=== PATIENT | female | born 2000 | race Caucasian/White ===

== ENCOUNTER 2018-05-10 12:18 | Emergency (ER) | payer BC, SELFPAY ==
[2018-05-10 12:21] VITALS: BP 128/88; PULSE 108; RESP 12; TEMP 36.4; O2SAT 99
[2018-05-10 12:26] VITALS: BP 128/88; PULSE 108; RESP 12; TEMP 36.4; O2SAT 99
--- NOTE | 2018-05-10 14:48 | ED_ITS ---
HPI - Skin/Abscess/Foreign Bdy <Britta Ledesma PA-C - Last Filed: 05/10/18 20:10> General Chief complaint: Skin/Abscess/Foreign Body Stated complaint: BUMP ON TAIL BONE PAIN NOT ABLE TO SEAT Time Seen by Provider: 05/10/18 13:26 Source: patient and family Mode of arrival: ambulatory Limitations: no limitations History of Present Illness HPI narrative: This healthy 17-year-old female comes in due to worsening left gluteal pain. She states that she actually had pain in this area a couple of months ago and was told likely due to constipation. Pain did improve on that point, however Wednesday she started to have similar pain again that gradually worsened over the weekend. It is in the left upper gluteal area lateral to the cleft. She states that she saw her mom's PCP yesterday who was concerned about abscess but unable to reach surgeon. Pain has continued to worsen overnight, she is unable to sit or lie down comfortably. She has not had fever. She has not had any nausea or vomiting. She has not had drainage from the wound. She has not been constipated, but did take a laxative in case that was the problem and did not help ( has been having regular bowel movements ). She states ibuprofen has helped slightly with pain. Related Data Previous Rx's Medication Instructions Recorded amoxicillin-pot clavulanate 1 tab PO Q12H #20 tab 05/10/18 [Augmentin] hydrocodone-acetaminophen [[place]] 1 tab PO Q4HR #12 tab 05/10/18 meloxicam 15 mg PO DAILY #14 tab 05/10/18 Allergies Allergy/AdvReac Type Severity Reaction Status Date / Time Sulfa (Sulfonamide Allergy Verified 05/10/18 17:22 Antibiotics) Review of Systems <Britta Ledesma PA-C - Last Filed: 05/10/18 20:10> Review of Systems ROS Unobtainable: All systems reviewed & are unremarkable except as noted in HPI and below PFSH <Britta Ledesma PA-C - Last Filed: 05/10/18 20:10> Medical History Healthy female (Chronic) Surgical History Status post adenoidectomy (Resolved) Family History Other Family history non-contributory Social History Smoking Status: Never smoker Family History Other Family history non-contributory Social History Smoking Status: Never smoker Exam <Britta Ledesma PA-C - Last Filed: 05/10/18 20:10> Narrative Exam Narrative: GENERAL APPEARANCE: Patient standing up, appears uncomfortable, but in NAD LUNGS: Clear to auscultation bilaterally. HEART: Rate and rhythm regular without murmur, normal S1 and S2, no S3 or S4. ABDOMEN: Soft, nontender, nondistended, +bowel sounds x4 quadrants DERM: at the proximal border of the left gluteal cleft there is some non circumscribed edema but no circumscribed mass or clear fluctuance. She is exquisitely tender lateral to this. There is no visible pore or d/c Initial Vital Signs Initial Vital Signs: Vital Signs Temperature 97.6 F 05/10/18 12:21 Pulse Rate 108 H 05/10/18 12:21 Respiratory Rate 12 05/10/18 12:21 Blood Pressure 128/88 05/10/18 12:21 Pulse Oximetry 99 05/10/18 12:21 <Kip Burgess DO - Last Filed: 05/17/18 07:40> Initial Vital Signs Initial Vital Signs: Vital Signs Temperature 97.6 F 05/10/18 12:21 Pulse Rate 108 H 05/10/18 12:21 Respiratory Rate 12 05/10/18 12:21 Blood Pressure 128/88 05/10/18 12:21 Pulse Oximetry 99 05/10/18 12:21 Course <Britta eLdesma PA-C - Last Filed: 05/10/18 20:10> Additional Information: Dr. Jiang on-call for surgery has kindly come to ED to evaluate patient today and believes this is a phlegmon, not abscessed at this point. Advised antibiotics and pain management, and he will see her in the office next week. Appointment is scheduled. Orders Ordered: Discontinued Medications Ketorolac Tromethamine (Toradol) 30 mg IV NOW ONE Stop: 05/10/18 15:03 Last Admin: 05/10/18 15:22 Dose: 30 mg Vital Signs - 8 hr 05/10/18 12:21 05/10/18 12:26 05/10/18 17:10 Temperature 97.6 F 97.6 F Pulse Rate 108 H 108 H 98 H Respiratory Rate 12 12 Blood Pressure 128/88 128/88 Blood Pressure [Left Arm] 112/48 L Pulse Oximetry 99 99 98 05/10/18 17:24 Temperature 98.9 F Pulse Rate 105 H Respiratory Rate 19 Blood Pressure 112/48 L Blood Pressure [Left Arm] Pulse Oximetry 100 <Kip Burgess DO - Last Filed: 05/17/18 07:40> Orders Ordered: Discontinued Medications Ketorolac Tromethamine (Toradol) 30 mg IV NOW ONE Stop: 05/10/18 15:03 Last Admin: 05/10/18 15:22 Dose: 30 mg Vital Signs - 8 hr 05/10/18 12:21 05/10/18 12:26 05/10/18 17:10 Temperature 97.6 F 97.6 F Pulse Rate 108 H 108 H 98 H Respiratory Rate 12 12 Blood Pressure 128/88 128/88 Blood Pressure [Left Arm] 112/48 L Pulse Oximetry 99 99 98 05/10/18 17:24 Temperature 98.9 F Pulse Rate 105 H Respiratory Rate 19 Blood Pressure 112/48 L Blood Pressure [Left Arm] Pulse Oximetry 100 MDM - Skin/Abscess/Foreign Bdy <Britta Ledesma PA-C - Last Filed: 05/10/18 20:10> Lab Data Result diagrams: 05/10/18 15:20 05/10/18 16:00 Lab Results 05/10/18 05/10/18 05/10/18 Range/Units 15:20 15:20 16:00 WBC 11.6 H (4.5-11.0) X10^3/uL RBC 4.41 (4.0-5.2) X10^6/uL Hgb 13.8 (12.0-16.0) g/dL Hct 40.3 (36-46) % MCV 91.3 (80-100) fL MCH 31.2 (26-34) PG MCHC 34.2 (30-36) % RDW 11.9 (11.6-14.8) % Plt Count 323 (150-400) X10^3/uL Neut % (Auto) 73.9 (50-75) % Lymph % (Auto) 19.1 L (25-40) % Andrew % (Auto) 6.1 (3-14) % Eos % (Auto) 0.3 L (2-4) % Baso % (Auto) 0.6 (0-2) % Neut # (Auto) 8600 H (6482-8204) /uL Lymph # (Auto) 2200 (7374-1477) /uL [place] # (Auto) 700 (0-900) /uL Eos # (Auto) 0 (0-450) /uL Baso # (Auto) 100 (0-100) /uL Sodium 140 (137-145) mmol/L Potassium 4.0 (3.4-5.1) mmol/L Chloride 103 (98-107) mmol/L Carbon Dioxide 26 (22-32) mmol/L BUN 13 (7-17) mg/dL Creatinine 0.60 (0.52-1.04) mg/dL Estimated GFR > 60.0 (>60) mL/min BUN/Creatinine Ratio 21.7 (6-22) Glucose 95 (70-100) mg/dL Calcium 9.6 (8.4-10.2) mg/dL Serum , Qual Negative (Negative) <Kip Burgess, DO - Last Filed: 05/17/18 07:40> Lab Data Lab Results 05/10/18 05/10/18 05/10/18 Range/Units 15:20 15:20 16:00 WBC 11.6 H (4.5-11.0) X10^3/uL RBC 4.41 (4.0-5.2) X10^6/uL Hgb 13.8 (12.0-16.0) g/dL Hct 40.3 (36-46) % MCV 91.3 (80-100) fL MCH 31.2 (26-34) PG MCHC 34.2 (30-36) % RDW 11.9 (11.6-14.8) % Plt Count 323 (150-400) X10^3/uL Neut % (Auto) 73.9 (50-75) % Lymph % (Auto) 19.1 L (25-40) % Andrew % (Auto) 6.1 (3-14) % Eos % (Auto) 0.3 L (2-4) % Baso % (Auto) 0.6 (0-2) % Neut # (Auto) 8600 H (3527-7955) /uL Lymph # (Auto) 2200 (7036-0171) /uL Andrew # (Auto) 700 (0-900) /uL Eos # (Auto) 0 (0-450) /uL Baso # (Auto) 100 (0-100) /uL Sodium 140 (137-145) mmol/L Potassium 4.0 (3.4-5.1) mmol/L Chloride 103 (98-107) mmol/L Carbon Dioxide 26 (22-32) mmol/L BUN 13 (7-17) mg/dL Creatinine 0.60 (0.52-1.04) mg/dL Estimated GFR > 60.0 (>60) mL/min BUN/Creatinine Ratio 21.7 (6-22) Glucose 95 (70-100) mg/dL Calcium 9.6 (8.4-10.2) mg/dL Serum , Qual Negative (Negative) Discharge Plan Departure Patient Disposition: Home Clinical Impression: Phlegmon Discharge Date/Time: 05/10/18 17:25 Interventions: ED Discharge Assessment Last Done: 05/10/18 17:24 Instructions: Pilonidal Cyst Activity Restrictions/Additional Instructions: Dr. Jiang believes that you have inflammation in the area where you are having pain and this can be related to infection, but he does not think you have an abscess there at this point. We are going to start you on an antibiotic for th is called Augmentin. Take it twice daily. Take the long-acting anti- inflammatory pain medicine meloxicam once daily ( do not take with additional NSAIDs ). I have also given you a prescription for hydrocodone /acetaminophen to take in addition for pain if needed ( do not take this and DrRaúl as it may make you sleepy). Return here or call Dr. Jiang's office right away if you have acutely worsening symptoms i.e. worsening pain or swelling, or new symptoms such as fever or drainage. Otherwise, please see him at his office next Wednesday at 9:45 a.m. as you discussed. For primary care providers in [facility] who may be able to see you quickly, you may wish to call the [facility] clinic to see either Dr. Diana or Ashleigh, the nurse practitioner. Sandra Orona, nurse practitioner who just joined [facility] has been in practice here in [facility] for a long time and is wonderful as well. Prescriptions: New hydrocodone-acetaminophen [Toluca] 5-325 mg tablet 1 tab PO Q4HR Qty: 12 RF: 0 meloxicam 15 mg tablet 15 mg PO DAILY Qty: 14 RF: 0 amoxicillin-pot clavulanate [Augmentin] 875-125 mg tablet 1 tab PO Q12H Qty: 20 RF: 0 Referrals: Javier Jiang MD [Physician] - <Kip Burgess DO - Last Filed: 05/17/18 07:40> Cosign ED Attending Coscindiature Attestation: I was immediately available in the department for consultation. Documentation has been reviewed. I agree with assessment and plan.
[2018-05-10] MEDS: KETOROLAC 60 MG/2 ML VIAL 30 MG IV (15:22)
[2018-05-10 15:25] LABS: Add Manual Diff / Slide Review NO; Basophils Absolute Auto 100 /uL (0-100); Basophils Percent Auto 0.6 % (0-2); Eosinophils Absolute Auto 0 /uL (0-450); Eosinophils Percent Auto 0.3 % (2-4); Hematocrit 40.3 % (36-46); Hemoglobin 13.8 g/dL (12.0-16.0); Lymphocytes Absolute Auto 2200 /uL (1100-4500); Lymphocytes Percent Auto 19.1 % (25-40); Mean Corpuscular HGB Conc 34.2 % (30-36); Mean Corpuscular Hemoglobin 31.2 PG (26-34); Mean Corpuscular Volume 91.3 fL (80-100); Monocytes Absolute Auto 700 /uL (0-900); Monocytes Percent Auto 6.1 % (3-14); Neutrophils Absolute Auto 8600 /uL (1500-7000); Neutrophils Percent Auto 73.9 % (50-75); Platelet Count 323 X10^3/uL (150-400); Red Blood Cell Count 4.41 X10^6/uL (4.0-5.2); Red Cell Distribution Width 11.9 % (11.6-14.8); White Blood Cell Count 11.6 X10^3/uL (4.5-11.0)
[2018-05-10 15:53] LABS: Pregnancy Test Serum,Qual Negative (Negative)
[2018-05-10 16:17] LABS: BUN Creatinine Ratio 21.7 (6-22); Blood Urea Nitrogen 13 mg/dL (7-17); Calcium 9.6 mg/dL (8.4-10.2); Carbon Dioxide 26 mmol/L (22-32); Chloride 103 mmol/L (98-107); Estimated Glomerular Filt Rate > 60.0 mL/min (>60); Glucose 95 mg/dL (70-100); HEMOLYSIS < 15 (0-50); Sodium 140 mmol/L (137-145)
--- NOTE | 2018-05-10 17:03 | PM.CN ---
History of Present Illness Date Patient Seen: 05/10/18 Time Patient Seen: 17:03 Chief complaint: BUMP ON TAIL BONE PAIN NOT ABLE TO SEAT Reason for consult: Painful mass at the coccyx Requesting provider: Britta Ledesma Narrative: 17-year-old otherwise healthy female who presented to her family physician approximately 4 days ago now with nondescript pain and discomfort at the sacrococcygeal region. She had had 1 similar episode sometime last year and was prescribed laxatives. Ironically, the patient states that her symptoms abated at that time. She has had no issues until 4 days ago as above. At that point she began to experience a fullness in feeling of a palpable lump in the sacrococcygeal region but without any fever, chills, nausea, vomiting, or drainage. Pain is mostly present when she is in a upright seated position but abates when she is in a decubitus supine position. She has had no recent troubles with bowel function. No diarrhea or constipation. No melena, hematochezia, bright red blood per rectum. No abdominal pain. No nausea or vomiting. No dysuria or hematuria. No vaginal discharge. She presents to the emergency department this afternoon because of progressive discomfort. 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[employer] Home Medications Medication Instructions Recorded Confirmed Type amoxicillin-pot clavulanate 1 tab PO Q12H #20 tab 05/10/18 Rx [Augmentin] hydrocodone-acetaminophen [[place]] 1 tab PO Q4HR #12 tab 05/10/18 Rx meloxicam 15 mg PO DAILY #14 tab 05/10/18 Rx Review of Systems Review of Systems All systems reviewed & are unremarkable except as noted in HPI and below Exam Vital Signs (past 8 hours): - 05/10/18 12:21 05/10/18 12:26 Temperature 97.6 F 97.6 F Pulse Rate 108 H 108 H Respiratory Rate 12 12 Blood Pressure 128/88 128/88 Pulse Oximetry 99 99 Oxygen Delivery Method Room Air Narrative Exam Narrative: Patient is seen in the emergency department with the assistance of the nurse applications manager. Patient's mother is at the bedside for the entire visit as well Patient is actually lying comfortably in the right lateral decubitus position upon my visit. She is smiling and laughing with her family. She is in no acute distress. She has no evidence of acute illness or discomfort. She is able to ambulate and reposition herself without any difficulty. No fevers here in the emergency department. Otherwise hemodynamically stable Focused examination of the sacrococcygeal region shows a small 3 cm indurated area consistent with phlegmon. There is no fluctuance. Actually there is no actual skin lesions such as sebaceous cyst or obvious pilonidal cyst. No tracts or granulation tissue. She is overall not even particularly hirsute. The adelaida cleft is not particularly deep as well. She is focally tender to palpation over the phlegmon however. The lesion does not encroach upon the perianal region. No cellulitis or erythema. Formal digital rectal examination is deferred Objective Labs Result Diagrams: 05/10/18 15:20 05/10/18 16:00 Labs: Laboratory Results - last 24 hr 05/10/18 05/10/18 05/10/18 15:20 15:20 16:00 WBC 11.6 H RBC 4.41 Hgb 13.8 Hct 40.3 MCV 91.3 MCH 31.2 MCHC 34.2 RDW 11.9 Plt Count 323 Neut % (Auto) 73.9 Lymph % (Auto) 19.1 L [place] % (Auto) 6.1 Eos % (Auto) 0.3 L Baso % (Auto) 0.6 Neut # (Auto) 8600 H Lymph # (Auto) 2200 [place] # (Auto) 700 Eos # (Auto) 0 Baso # (Auto) 100 Sodium 140 Potassium 4.0 Chloride 103 Carbon Dioxide 26 BUN 13 Creatinine 0.60 Estimated GFR > 60.0 BUN/Creatinine Ratio 21.7 Glucose 95 Calcium 9.6 Serum , Qual Negative Assessment & Plan Plan: Assessment/Plan Narrative: 17-year-old female with phlegmon but no discrete abscess at the sacrococcygeal area. Although the lesion would be consistent with an inflamed pilonidal cyst I do not currently appreciate any sequela of a cyst. Nevertheless the patient has been symptomatic for 4 days now with progression of her pain. I would therefore recommend that she be treated with antibiotics. I believe she can be managed as an outpatient however. I see no indications for acute surgical intervention such as incision and drainage. I will see her in the office next week following the course of the antibiotics. She understands after my discussion that there are several potential scenarios that could develop. She may have progression of her symptoms despite the above interventions which would necessitate earlier return with subsequent incision and drainage. She may respond appropriately but then recur at a later date. She could also respond completely without recurrence of her symptoms and no evidence of a lesion that would require further excision although she did have evidence of a pilonidal cyst I would recommend removal once the acute inflammation has subsided. I will plan to see her next week as above, but I clearly instructed her and her family to return sooner if she has progressive pain, fever, chills, significant swelling, or drainage from the area. All questions were answered to her satisfaction, and she voiced understanding. Case discussed with the attending emergency room physician.
[2018-05-10 17:10] VITALS: BP 112/48; PULSE 98; O2SAT 98
--- NOTE | 2018-05-10 17:12 | P.CONS_ITS ---
History of Present Illness Date Patient Seen: 05/10/18 Time Patient Seen: 17:03 Chief complaint: BUMP ON TAIL BONE PAIN NOT ABLE TO SEAT Reason for consult: Painful mass at the coccyx Requesting provider: Britta Ledesma Narrative: 17-year-old otherwise healthy female who presented to her family physician approximately 4 days ago now with nondescript pain and discomfort at the sacrococcygeal region. She had had 1 similar episode sometime last year and was prescribed laxatives. Ironically, the patient states that her symptoms abated at that time. She has had no issues until 4 days ago as above. At that point she began to experience a fullness in feeling of a palpable lump in the sacrococcygeal region but without any fever, chills, nausea, vomiting, or drainage. Pain is mostly present when she is in a upright seated position but abates when she is in a decubitus supine position. She has had no recent troubles with bowel function. No diarrhea or constipation. No melena, hematochezia, bright red blood per rectum. No abdominal pain. No nausea or vomiting. No dysuria or hematuria. No vaginal discharge. She presents to the emergency department this afternoon because of progressive discomfort. 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 Medications Medication Instructions Recorded Confirmed Type amoxicillin-pot clavulanate 1 tab PO Q12H #20 tab 05/10/18 Rx [Augmentin] hydrocodone-acetaminophen [[place]] 1 tab PO Q4HR #12 tab 05/10/18 Rx meloxicam 15 mg PO DAILY #14 tab 05/10/18 Rx Review of Systems Review of Systems All systems reviewed & are unremarkable except as noted in HPI and below Exam Vital Signs (past 8 hours): - 05/10/18 12:21 05/10/18 12:26 Temperature 97.6 F 97.6 F Pulse Rate 108 H 108 H Respiratory Rate 12 12 Blood Pressure 128/88 128/88 Pulse Oximetry 99 99 Oxygen Delivery Method Room Air Narrative Exam Narrative: Patient is seen in the emergency department with the assistance of the nurse buncher machine. Patient's mother is at the bedside for the entire visit as well Patient is actually lying comfortably in the right lateral decubitus position upon my visit. She is smiling and laughing with her family. She is in no acute distress. She has no evidence of acute illness or discomfort. She is able to ambulate and reposition herself without any difficulty. No fevers here in the emergency department. Otherwise hemodynamically stable Focused examination of the sacrococcygeal region shows a small 3 cm indurated area consistent with phlegmon. There is no fluctuance. Actually there is no actual skin lesions such as sebaceous cyst or obvious pilonidal cyst. No tracts or granulation tissue. She is overall not even particularly hirsute. The adelaida cleft is not particularly deep as well. She is focally tender to palpation over the phlegmon however. The lesion does not encroach upon the perianal region. No cellulitis or erythema. Formal digital rectal examination is deferred Objective Labs Result Diagrams: 05/10/18 15:20 05/10/18 16:00 Labs: Laboratory Results - last 24 hr 05/10/18 05/10/18 05/10/18 15:20 15:20 16:00 WBC 11.6 H RBC 4.41 Hgb 13.8 Hct 40.3 MCV 91.3 MCH 31.2 MCHC 34.2 RDW 11.9 Plt Count 323 Neut % (Auto) 73.9 Lymph % (Auto) 19.1 L [place] % (Auto) 6.1 Eos % (Auto) 0.3 L Baso % (Auto) 0.6 Neut # (Auto) 8600 H Lymph # (Auto) 2200 [place] # (Auto) 700 Eos # (Auto) 0 Baso # (Auto) 100 Sodium 140 Potassium 4.0 Chloride 103 Carbon Dioxide 26 BUN 13 Creatinine 0.60 Estimated GFR > 60.0 BUN/Creatinine Ratio 21.7 Glucose 95 Calcium 9.6 Serum , Qual Negative Assessment & Plan Plan: Assessment/Plan Narrative: 17-year-old female with phlegmon but no discrete abscess at the sacrococcygeal area. Although the lesion would be consistent with an inflamed pilonidal cyst I do not currently appreciate any sequela of a cyst. Nevertheless the patient has been symptomatic for 4 days now with progression of her pain. I would therefore recommend that she be treated with antibiotics. I believe she can be managed as an outpatient however. I see no indications for acute surgical intervention such as incision and drainage. I will see her in the office next week following the course of the antibiotics. She understands after my discussion that there are several potential scenarios that could develop. She may have progression of her symptoms despite the above interventions which would necessitate earlier return with subsequent incision and drainage. She may respond appropriately but then recur at a later date. She could also respond completely without recurrence of her symptoms and no evidence of a lesion that would require further excision although she did have evidence of a pilonidal cyst I would recommend removal once the acute inflammation has subsided. I will plan to see her next week as above, but I clearly instructed her and her family to return sooner if she has progressive pain, fever, chills, significant swelling, or drainage from the area. All questions were answered to her satisfaction, and she voiced understanding. Case discussed with the attending emergency room physician.
[2018-05-10 17:24] VITALS: BP 112/48; PULSE 105; RESP 19; TEMP 37.2; O2SAT 100
--- NOTE | 2018-05-10 17:24 | PC.NURSE ---
Patient unable to sit/lay down without excruciating pain. C/o rectal pain.
== END 2018-05-10 17:25 | disposition home or self-care (01) ==
PROVIDERS: Emergency Provider Internal Medicine
DX: L02.91 Cutaneous abscess, unspecified (principal)
CPT/HCPCS: 36591; 80048; 84703; 85025; 96374; 99282; 99284; J1885

== ENCOUNTER 2018-05-24 12:46 | Day surgery (SDC) | payer BC, SELFPAY ==
[2018-05-19 12:21] VITALS: BMI 27.4
[2018-05-24] VITALS (10 sets, daily range): BP systolic 101–120; BP diastolic 47–79; PULSE 79–106; RESP 10–16; TEMP 36.4–36.7; O2SAT 97–100; BMI 27.4
--- NOTE | 2018-05-24 | PATH_ITS ---
[facility] Accession Number: [id number] . 01 Material submitted: . PILONIDAL CYST . 02 Diagnosis: Pilonidal Cyst, Excision: Histologic features of pilonidal cyst with associated abscess. MRV/05/26/2018 . 02 Electronically signed: . Lesli Rojas MD, Pathologist NPI- [id number] . 01 Gross description: . Received in formalin, labeled pilonidal cyst, is an unoriented ellipse of howell smooth and shiny skin with underlying tissue (4.8 x 3.2 x 2.4 cm) containing a linear firm pucker along the long axis. The underlying tissue is fatty and densely fibrous containing a cystic cavity. The cavity (3.5 x 0.7 x 0.3 cm) contains red-orange tacky liquid. The resection margin is inked black. [employer] serial sections are submitted in cassettes A1 and A2. ([id number]) /[facility] . 02 Pathologist provided ICD-10: L05.01 . 02 CPT . 963695 Performed at: 01 [facility] [address] [facility], [place], [place] [id number] MD Nilesh Loredo MD Phone: [phone] Performed at: 02 [facility] [address] [place], [place] [id number] MD Shavon Li MD Phone: [phone]
[2018-05-24] MEDS: LACTATED RINGERS 1,000 ML 42 ML IV ×2 (13:15→15:56)
[2018-05-24] MEDS: CEFAZOLIN 2 GM/100 ML FROZ.PIGGY IV (13:55)
--- NOTE | 2018-05-24 14:10 | PM.PREOP ---
Pre-operative Note Interval Note History & Physical reviewed/Exam performed by Physician: Yes Changes to H&P: No H&P completed within 30 days and has changed as indicated here:: Patient seen and examined in the preoperative area today. Her history and physical examination within the last 30 days is documented, placed on the chart, and has not changed. Urine test today is negative. Proceed with excision of pilonidal cyst today as planned.
[2018-05-24] MEDS: LIDOCAINE 1% W/EPI INJ 20 ML INJ (14:52)
[2018-05-24] MEDS: BUPIVACAINE 0.5% (PF) VIAL 30 ML INJ (14:53)
[2018-05-24] MEDS: OXYCODONE/ACETAMINOPHEN 5/325 TABLET 1 TAB PO (15:22)
[2018-05-24] MEDS: fentaNYL 100 MCG/2 ML INJ 50 MCG IV ×2 (15:34→15:40)
--- NOTE | 2018-05-24 15:41 | PM.OP.1 ---
Operative Date/Time/Diagnoses Date of procedure: 05/24/18 Time of procedure: 15:41 Pre-op diagnosis: Inflamed pilonidal cyst Post-op diagnosis: same Procedure & Clinicians Procedure: Excision of simple pilonidal cyst measuring 6 x 2 cm in greatest dimension Same procedure as scheduled: Yes Indications: 18-year-old female who presented recently to the emergency department with perianal pain and fullness. Examination and evaluation were consistent with inflamed pilonidal cyst. She responded nicely to outpatient antibiotics and presents now for elective excision of the cyst. Surgeon: Javier Jiang Click Yes if Unassisted: Yes Anesthesia Type: General Operative Notes Findings: 1. Simple pilonidal cyst with the above dimensions 2. No evidence of abscess or phlegmon 3. No evidence of significant chronic inflammation Closure Type: primary Specimen(s): other (pilonidal cyst) Prosthetic devices, grafts, tissues, transplants, or devices: None Estimated Blood Loss (mL): 10 Blood products transfused: none Procedure in detail: After obtaining informed consent the patient was brought to the operating room and left supine on the [facility]. After satisfactory induction of anesthesia she was moved to prone kiran-knife position. All pressure points were padded appropriately. Buttocks were taped apart. Area was prepped and draped in usual sterile fashion. SCOAP time out was performed per standard protocol. Elliptical incision was then designed around the cyst and infiltrated with a 1: 1 mixture of 1% lidocaine with 1:100,000 epinephrine and 0.5% plain Marcaine for postoperative analgesia. Skin incision was created with 15 scalpel blade followed by the Bovie to achieve hemostasis. Dissection proceeded down through normal-appearing tissue plane to the sacral fascia. Lesion was then excised along the fascial plane and sent for permanent section. Wound was irrigated with copious amounts of sterile saline solution and noted to be hemostatic. Subcutaneous tissue was reapproximated meticulously with interrupted 2 0 Vicryl suture. Skin was reapproximated with interrupted vertical mattress 2 0 nylon suture also meticulously. Sterile dressing was applied. Patient was returned to the supine position on the [facility]. Anesthesia was reversed and she was extubated in the operating room. She was taken recovery stable condition. Complications: none Condition: stable Disposition: PACU Plan for aftercare: 1. Discharge home 2. Follow up in surgery Clinic next week
--- NOTE | 2018-05-24 15:46 | P.OP_ITS ---
Operative Date/Time/Diagnoses Date of procedure: 05/24/18 Time of procedure: 15:41 Pre-op diagnosis: Inflamed pilonidal cyst Post-op diagnosis: same Procedure & Clinicians Procedure: Excision of simple pilonidal cyst measuring 6 x 2 cm in greatest dimension Same procedure as scheduled: Yes Indications: 18-year-old female who presented recently to the emergency department with perianal pain and fullness. Examination and evaluation were consistent with inflamed pilonidal cyst. She responded nicely to outpatient antibiotics and presents now for elective excision of the cyst. Surgeon: Javier Jiang Click Yes if Unassisted: Yes Anesthesia Type: General Operative Notes Findings: 1. Simple pilonidal cyst with the above dimensions 2. No evidence of abscess or phlegmon 3. No evidence of significant chronic inflammation Closure Type: primary Specimen(s): other (pilonidal cyst) Prosthetic devices, grafts, tissues, transplants, or devices: None Estimated Blood Loss (mL): 10 Blood products transfused: none Procedure in detail: After obtaining informed consent the patient was brought to the operating room and left supine on the [facility]. After satisfactory induction of anesthesia she was moved to prone kiran-knife position. All pressure points were padded appropriately. Buttocks were taped apart. Area was prepped and draped in usual sterile fashion. SCOAP time out was performed per standard protocol. Elliptical incision was then designed around the cyst and infiltrated with a 1: 1 mixture of 1% lidocaine with 1:100,000 epinephrine and 0.5% plain Marcaine for postoperative analgesia. Skin incision was created with 15 scalpel blade followed by the Bovie to achieve hemostasis. Dissection proceeded down through normal-appearing tissue plane to the sacral fascia. Lesion was then excised along the fascial plane and sent for permanent section. Wound was irrigated with copious amounts of sterile saline solution and noted to be hemostatic. Subcutaneous tissue was reapproximated meticulously with interrupted 2 0 Vicryl suture. Skin was reapproximated with interrupted vertical mattress 2 0 nylon suture also meticulously. Sterile dressing was applied. Patient was returned to the supine position on the [facility]. Anesthesia was reversed and she was extubated in the operating room. She was taken recovery stable condition. Complications: none Condition: stable Disposition: PACU Plan for aftercare: 1. Discharge home 2. Follow up in surgery Clinic next week
--- NOTE | 2018-05-24 16:45 | SUR.PHASEII ---
Mom brought in, d/c instructions discussed, pt not ready to go. allowed to visit with mom and sister, pt dressed when she was ready and left in stable condition.
== END 2018-05-24 16:46 | disposition home or self-care (01) ==
PROVIDERS: Visit Provider Surgery
PROC: (CPT 11770; principal; 2018-05-24 14:30)
DX: L05.01 Pilonidal cyst with abscess (principal)
CPT/HCPCS: 11770; J0690; J1100; J2250; J2405; J2704; J3010

== ENCOUNTER 2018-07-21 04:15 | Emergency (ER) | payer BC, SELFPAY ==
--- NOTE | 2018-07-21 04:28 | ED.ABDPAIN ---
HPI - Abdominal Pain General Chief Complaint: Abdominal Pain Stated Complaint: ABD PAIN/NAUSEA/FREQUENT URINATION Time Seen by Provider: 07/21/18 04:26 Source: patient Mode of arrival: ambulatory Limitations: no limitations History of Present Illness HPI narrative: Patient is a 18-year-old female here for evaluation of several days if not several weeks of occasional lower abdominal cramping. She states that it happens every now and then. She also has had off and on diarrhea which she states does not seem to associated with the cramping. She states that when the pain comes on it is fairly intense and sudden onset. She states that she has urinary urgency but when she goes to the bathroom she cannot urinate as much as what she thinks she does. No vomiting. Does have urinary tract infections in the past. Currently has an IUD in place. Is sexually active. Is not having any vaginal bleeding or vaginal discharge. No recent travel. She is not concerned about sexually transmitted diseases. Has never had a sexually transmitted disease past. Related Data Previous Rx's Medication Instructions Recorded meloxicam 15 mg PO DAILY #14 tab 05/10/18 phenazopyridine [Pyridium] 100 mg PO TID PRN 2 Days #6 tab 07/21/18 Allergies Allergy/AdvReac Type Severity Reaction Status Date / Time Sulfa (Sulfonamide Allergy Hives on Verified 07/07/18 14:51 Antibiotics) face/neck Review of Systems Constitutional Denies fever(s) and Denies headache(s) ENT Ears, Nose, Mouth, and Throat: Denies headache(s) Cardiovascular Denies chest pain and Denies dyspnea Respiratory Denies dyspnea Gastrointestinal Gastrointestinal: Reports abdominal pain, Reports cramping and Reports diarrhea Genitourinary Reports urinary urgency and Denies vaginal discharge Integumentary/Breasts Denies lesions and Denies rash Neurologic Denies headache(s) Hematologic/Lymphatic Denies easy bleeding and Denies easy bruising [facility] Medical History Pilonidal cyst without abscess (Acute) Healthy female (Chronic) Social History marital status: unmarried,living together household members: significant other occupational status: employed Smoking Status: Never smoker alcohol intake: current substance use type: does not use Exam Initial Vital Signs Initial Vital Signs: Vital Signs Temperature 98.4 F 07/21/18 04:31 Pulse Rate 84 07/21/18 04:31 Respiratory Rate 14 07/21/18 04:31 Blood Pressure 131/78 07/21/18 04:31 Pulse Oximetry 100 07/21/18 04:31 Const General: cooperative, comfortable, well developed, well groomed and No acute distress Orientation: alert, awake and oriented x3 HENMT Head: normal to inspection and normocephalic Resp Effort & Inspection: normal respiratory effort GI Inspection: non-distended Palpation: soft, No firm and No tender Skin Lesions: no lesions Rashes: no rashes Psych Appearance: grossly normal and well kempt Course Vital Signs - 8 hr 07/21/18 04:31 Temperature 98.4 F Pulse Rate 84 Respiratory Rate 14 Blood Pressure 131/78 Pulse Oximetry 100 MDM - Abdominal Pain Lab Data Attestation: I reviewed the patient's lab results. Point of care testing: Point of Care Testing Test Results Negative Urine Dip Bedside Urine Glucose Negative Bedside Urine Bilirubin - Negative Bedside Urine Ketone - Negative Urine Specific [place] 1.015 Bedside Urine Occult Blood - Negative Bedside Urine pH 6.0 Bedside Urine Protein - Negative Bedside Urine Urobilinogen - Negative Bedside Urine Nitrite - Negative Bedside Urine Leukocytes - Negative Esterase [facility] Narrative Medical decision making narrative: test is negative. UA is unremarkable. no fevers. Has a benign abdominal exam. She states that she does not have any symptoms currently. She has a follow-up appointment with her new primary doctor later today.. Will give a prescription for Pyridium but she was instructed to hold on filling this until after she sees her primary provider today. Patient expressed understanding and agreement with plan. Discharge Plan Departure Patient Disposition: Home Clinical Impression: Urinary frequency Abdominal pain Qualifiers: Abdominal location: lower abdomen, unspecified Qualified Code(s): R10.30 - Lower abdominal pain, unspecified Activity Restrictions/Additional Instructions: I recommend that you keep your appointment with your new primary provider later today. Return to the emergency department for any new or worsening symptoms Prescriptions: New phenazopyridine [Pyridium] 100 mg tablet 100 mg PO TID PRN (Reason: pain) 2 Days Qty: 6 RF: 0 No Action meloxicam 15 mg tablet 15 mg PO DAILY Qty: 14 RF: 0
[2018-07-21 04:31] VITALS: BP 131/78; PULSE 84; RESP 14; TEMP 36.9; O2SAT 100; BMI 28.3
== END 2018-07-21 05:00 | disposition home or self-care (01) ==
LOC: ED 04:58
PROVIDERS: Emergency Provider Emergency Medicine
DX: R35.0 Frequency of micturition (principal); R10.30 Lower abdominal pain, unspecified
CPT/HCPCS: 81003; 81025; 99282; 99283

== ENCOUNTER → 2018-07-22 07:54 | Outpatient (CLI) | payer BC, SELFPAY ==
--- NOTE | 2018-07-22 | DI.US.S_ITS ---
PROCEDURE: US PELVIC COMPLETE INDICATIONS: PAIN TECHNIQUE: Real-time scanning was performed of the pelvic organs, with image documentation. Additional endovaginal scanning was necessary due to incomplete visualization of the adnexal and endometrial structures by transabdominal scanning. COMPARISON: None. FINDINGS: Transabdominal scanning: Limited scanning through the kidneys shows no hydronephrosis. No pathologic free abdominal or pelvic fluid. Endovaginal scanning: Uterus: Uterus is normal in size at 3.8 x 5.5 x 8.3 cm, anteverted. The endometrium measures 2.9 mm in combined thickness. A centrally positioned IUD is noted. Ovaries: The ovaries bilaterally appear normal measuring up to 1.6 x 1.3 x 3.2 cm on the right and 1.9 x 2.8 x 2.7 cm on the left containing a 1.6 x 0.9 x 1.3 cm cyst IMPRESSION: Centrally positioned IUD noted within the endometrial canal. A definite source of pelvic pain is not seen. Note is made of a left ovarian cyst measuring only 1.6 cm in maximal dimension, a size that general he is asymptomatic. Dictated by: Tod Hawk M.D. on 07/22/2018 at 12:42 Approved by: Tod Hawk M.D. on 07/22/2018 at 12:43
[2018-07-22 08:38] LABS: Add Manual Diff / Slide Review NO; Basophils Absolute Auto 0 /uL (0-100); Basophils Percent Auto 0.4 % (0-2); Eosinophils Absolute Auto 0 /uL (0-450); Eosinophils Percent Auto 0.7 % (2-4); Hematocrit 39.3 % (36-46); Hemoglobin 13.6 g/dL (12.0-16.0); Lymphocytes Absolute Auto 2200 /uL (1100-4500); Mean Corpuscular HGB Conc 34.5 % (30-36); Mean Corpuscular Hemoglobin 31.5 PG (26-34); Mean Corpuscular Volume 91.3 fL (80-100); Monocytes Absolute Auto 500 /uL (0-900); Monocytes Percent Auto 7.7 % (3-14); Neutrophils Absolute Auto 3200 /uL (1500-7000); Neutrophils Percent Auto 54.2 % (50-75); Platelet Count 283 X10^3/uL (150-400); Red Blood Cell Count 4.31 X10^6/uL (4.0-5.2); Red Cell Distribution Width 12.9 % (11.6-14.8); White Blood Cell Count 5.9 X10^3/uL (4.5-11.0)
[2018-07-22 08:56] LABS: Alanine Aminotransferase 26 IU/L (9-52); Albumin 4.6 g/dL (3.5-5.0); Albumin Globulin Ratio 1.3 (1.0-2.8); Alkaline Phosphatase 81 U/L (38-126); Aspartate Aminotransferase 24 IU/L (14-36); BUN Creatinine Ratio 17.1 (6-22); Bilirubin Total 0.4 mg/dL (0.2-1.3); Blood Urea Nitrogen 12 mg/dL (7-17); Calcium 9.1 mg/dL (8.4-10.2); Carbon Dioxide 27 mmol/L (22-32); Chloride 103 mmol/L (98-107); Estimated Glomerular Filt Rate > 60.0 mL/min (>60); Globulin 3.5 g/dL (1.7-4.1); Glucose 102 mg/dL (70-100); HEMOLYSIS < 15 (0-50); Potassium 3.9 mmol/L (3.4-5.1); Sodium 139 mmol/L (137-145); Total Protein 8.1 g/dL (6.3-8.2)
[2018-07-22 09:22] LABS: Free T4, Direct Thyroxine 1.12 ng/dL (0.78-2.19)
[2018-07-22 09:36] LABS: Thyroid Stimulating Hormone 0.96 uIU/mL (0.47-4.68)
[2018-07-29 09:12] LABS: Triiodothyronine T3 Total 122 ng/dL (86-192)
== END ==
PROVIDERS: Visit Provider Nurse Practitioner Family
DX: R10.30 Lower abdominal pain, unspecified (principal); R10.2 Pelvic and perineal pain; N83.202 Unspecified ovarian cyst, left side; Z97.5 Presence of (intrauterine) contraceptive device
CPT/HCPCS: 36415; 76830; 76856; 80053; 84439; 84443; 84480; 85025

== ENCOUNTER 2019-05-14 11:34 | Emergency (ER) | payer BC, SELFPAY ==
[2019-05-14 11:44] VITALS: BP 133/107; PULSE 106; RESP 16; TEMP 36; O2SAT 100; BMI 28.8
--- NOTE | 2019-05-14 11:46 | DI.RAD.S_ITS ---
PROCEDURE: XR ANKLE LT MIN 3V INDICATIONS: rolled left ankle pain TECHNIQUE: 3 views of the ankle were acquired. COMPARISON: None. FINDINGS: Bones: No fractures or dislocations. Ankle mortise is normally aligned. No suspicious bony lesions. Soft tissues: No tibiotalar joint effusion. Soft tissue swelling about the ankle is present. IMPRESSION: No displaced ankle fractures. Dictated by: Jay Jay Harris M.D. on 05/14/2019 at 11:01 Approved by: Jay Jay Harris M.D. on 05/14/2019 at 11:02
--- NOTE | 2019-05-14 12:27 | ED.LOWEXIN ---
HPI - Extremity Injury (Lower) <YAIMA Francis - Last Filed: 05/14/19 21:48> General Chief Complaint: Extremity Injury, Lower Stated Complaint: lt ankle poss break Time Seen by Provider: 05/14/19 11:52 Mode of arrival: Wheelchair History of Present Illness HPI Narrative: 18yo female presents to the emergency department complaining of left ankle pain from a fall that happened last night. She states that she was drinking and dancing. She states she inverted her ankle and heard a pop. Patient then noticed some swelling but continued to walk on it. This morning she woke up and noticed it was increasingly painful. She noticed swelling to the lateral aspect of her left ankle. She states the pain is worse with weight-bearing and plantar flexion. Patient denies any erythema, lesions, head injury, hip pain, foot pain, knee pain, or other concerns. She denies any significant medical history. Related Data Previous Rx's Medication Instructions Recorded meloxicam 15 mg PO DAILY #14 tab 05/10/18 Allergies Allergy/AdvReac Type Severity Reaction Status Date / Time Sulfa (Sulfonamide Allergy Hives on Verified 08/15/18 14:29 Antibiotics) face/neck Review of Systems <YAIMA Francis - Last Filed: 05/14/19 21:48> Review of Systems Narrative: REVIEW OF SYSTEMS: GENERAL: Denies fever or chills. HENT: No head trauma. EYES: No double vision or vision loss. CARDIOVASCULAR: No chest pain or syncope. RESPIRATORY: No shortness of breath or cough. GASTROINTESTINAL: No nausea, vomiting, diarrhea, or constipation. GENITOURINARY: No flank pain or dysuria. MUSCULOSKELETAL: Complains of ankle pain, see HPI. INTEGUMENTARY: No rash, lesions, or pruritus. PSYCH: No behavior or mood changes. Patient History <YAIMA Francis - Last Filed: 05/14/19 21:48> Medical History Healthy female (Chronic) Pilonidal cyst without abscess (Acute) Surgical History Status post adenoidectomy (Resolved) Family History Other Family history non-contributory Social History marital status: unmarried,living together household members: significant other occupational status: employed Smoking Status: Never smoker alcohol intake: current substance use type: does not use Smoking Status: Never smoker alcohol intake frequency: 0-2 drinks per day Substance Use Type: does not use Exam <YAIMA Francis - Last Filed: 05/14/19 21:48> Initial Vital Signs Initial Vital Signs: Vital Signs Temperature 96.8 F L 05/14/19 11:44 Pulse Rate 106 H 05/14/19 11:44 Respiratory Rate 16 05/14/19 11:44 Blood Pressure 133/107 H 05/14/19 11:44 Pulse Oximetry 100 05/14/19 11:44 PHYSICAL EXAMINATION: GENERAL: Well groomed, alert, and cooperative. Answers questions promptly and appropriately. Vital signs noted. HENT: Normocephalic, atraumatic. EYES: Symmetrical, sclera white, no periorbital swelling. CARDIOVASCULAR: Regular rate. RESPIRATORY: Normal respiratory rate, trachea midline, airway patent. No stridor, nasal flaring or accessory muscle use. MUSCULOSKELETAL: Tenderness to left lateral malleolus with moderate amount of swelling and minimal ecchymosis. Decreased flexion and extension of ankle due to pain. Pedal pulse 2 +and intact and equal bilaterally. No tenderness to foot or lower leg. Patient has difficulty putting weight on ankle due to pain. EXTREMITIES: CMS intact. No pedal edema. SKIN: Warm, dry, soft, appropriate color for ethnicity. No lesions, rashes, or wounds. NEURO: Alert and Oriented X 3. No sensory deficits. PSYCH: Appropriate affect and mood. <Renee Rey DO - Last Filed: 09/14/19 11:15> Initial Vital Signs Initial Vital Signs: Vital Signs Temperature 96.8 F L 05/14/19 11:44 Pulse Rate 106 H 05/14/19 11:44 Respiratory Rate 16 05/14/19 11:44 Blood Pressure 133/107 H 05/14/19 11:44 Pulse Oximetry 100 05/14/19 11:44 Course <YAIMA Francis - Last Filed: 05/14/19 21:48> Orders Ordered: ED Orders 05/14/19 11:46 XR ankle LT min 3V Stat Vital Signs Vital signs: Vital Signs - 8 hr 05/14/19 11:44 Temperature 96.8 F L Pulse Rate 106 H Respiratory Rate 16 Blood Pressure 133/107 H Pulse Oximetry 100 <Renee Rey DO - Last Filed: 09/14/19 11:15> Orders Ordered: ED Orders 05/14/19 11:46 XR ankle LT min 3V Stat Vital Signs Vital signs: Vital Signs - 8 hr 05/14/19 11:44 Temperature 96.8 F L Pulse Rate 106 H Respiratory Rate 16 Blood Pressure 133/107 H Pulse Oximetry 100 MDM - Extremity Injury (Lower) <YAIMA Francis - Last Filed: 05/14/19 21:48> Medical Records Attestation: I reviewed the patient's medical records. Lab Data Attestation: I reviewed the patient's lab results. Imaging Data Extremity x-ray #1: Radiologist's Impression: [address] [place] [id number] XRay Report Signed Patient: Randi Malin FMR#: [id number] : 2000Acct:[id number] Age/Sex: 18 / FDate of Service: 05/14/19 Loc: ED Accession Number: [id number] Procedure: XR ankle LT min 3V Ordering Provider: Renee Rey D.O. PROCEDURE: XR ANKLE LT MIN 3V INDICATIONS: rolled left ankle pain TECHNIQUE: 3 views of the ankle were acquired. COMPARISON: None. FINDINGS: Bones: No fractures or dislocations. Ankle mortise is normally aligned. No suspicious bony lesions. Soft tissues: No tibiotalar joint effusion. Soft tissue swelling about the ankle is present. IMPRESSION: No displaced ankle fractures. Dictated by: Jay Jay Harris M.D. on 05/14/2019 at 11:01 Approved by: Jay Jay Harris M.D. on 05/14/2019 at 11:[address] [facility] Narrative Medical decision making narrative: 18-year-old female presents to the emergency department for left ankle pain after a fall. X-rays negative for fractures. Differential includes sprain versus contusion. Most likely sprain due to mechanism of injury. She was given Miguel wrap and a stirrup brace due to significant pain with weight-bearing patient was also given crutches. She was encouraged to follow up in 1-2 weeks if symptoms continue for re-evaluation for possible occult fracture which is less likely. Patient was encouraged to RICE. Patient agree of plan of care verbalized understanding. Discharge Plan Departure Patient Disposition: Home Clinical Impression: Ankle sprain and strain Discharge Date/Time: 05/14/19 13:11 Instructions: DI for Ankle Sprain Activity Restrictions/Additional Instructions: Thank you for entrusting me with your care today. As discussed, your x-ray is negative for fractures. You sprained your ankle. We have given you an Miguel wrap and a stirrup brace help with pain and stabilization. Do not use the stirrup brace more than 2 weeks, remove it multiple times a day to move your ankle and prevent muscle wasting. Increase the amount of weight that you bear on her ankle each day, decreased any activity that causes significant pain during ankle. Follow up with your primary care provider in 1-2 weeks for further evaluation if your symptoms continue. Return emergency department for any new or worsening symptoms. Prescriptions: No Action meloxicam 15 mg tablet 15 mg PO DAILY Qty: 14 RF: 0 Referrals: Kate Davies [Primary Care Provider] -
== END 2019-05-14 13:11 | disposition home or self-care (01) ==
PROVIDERS: Emergency Provider Nurse Practitioner; PCP Physician Assistant Medical
DX: S93.402A Sprain of unspecified ligament of left ankle, initial encounter (principal); S96.912A Strain of unspecified muscle and tendon at ankle and foot level, left foot, initial encounter
CPT/HCPCS: 73610; 99283; 99284